=== PATIENT | female | born 1955 | race Caucasian/White ===

== ENCOUNTER 2021-09-19 04:10 | Day surgery (SDC) | payer OTHER ==
[2021-09-18 09:52] VITALS: BMI 36.9
[2021-09-19] MEDS ORDERED: MIDAZOLAM HCL 2 MG/2 ML SINGLE DOSE VIAL ONE (13:08)
[2021-09-19] MEDS ORDERED: LIDOCAINE HCL/PF 2% SDV 5ML VIAL ONE ×2 (13:09→16:16)
[2021-09-19] MEDS ORDERED: DEXAMETHASONE SOD PHOSPHATE 4 MG/1 ML VIAL ONE ×2 (13:09→16:16)
[2021-09-19] MEDS ORDERED: ceFAZolin SODIUM 1 GM VIAL ONE ×2 (13:09→16:16)
[2021-09-19] MEDS ORDERED: PROPOFOL 20 ML ONE ×4 (13:09→14:25)
[2021-09-19] MEDS ORDERED: ONDANSETRON 4 MG/2 ML VIAL IVPUSH PRN (13:11)
[2021-09-19] MEDS ORDERED: oxyCODONE HCL 5 MG TABLET PO PRN (13:11)
[2021-09-19] MEDS ORDERED: LIDOCAINE HCL 1%, 10 MG/ML (20ML VIAL) ONE ×2 (13:13→14:22)
[2021-09-19] MEDS ORDERED: LACTATED RINGERS SOLUTION 1,000 ML IV SCH (13:15)
[2021-09-19] MEDS ORDERED: DEXMEDETOMIDINE HCL 200 MCG/2 ML IVPB ONE (14:05)
[2021-09-19] MEDS ORDERED: ACETAMINOPHEN INJECTION 100 ML IVPB ONE (14:05)
[2021-09-19] MEDS ORDERED: DESFLURANE GAS 240 ML BOTTLE IH ONE (14:26)
[2021-09-19] MEDS ORDERED: SUCCINYLCHOLINE CHLORIDE 200 MG/10 ML SYRINGE ONE (14:29)
[2021-09-19] MEDS ORDERED: ceFAZolin SODIUM 1 GM VIAL IVPB ONE (15:00)
[2021-09-19] MEDS ORDERED: LIDOCAINE HCL 1%, 10 MG/ML (20ML VIAL) NR ONE (15:18)
[2021-09-19 18:00] VITALS: PULSE 65
[2021-09-19 19:07] VITALS: BP 90/54; TEMP 96.8
== END 2021-09-19 19:20 | disposition home or self-care (01) ==
LOC: JASU-SURG 04:10
PROVIDERS: ATTEND Surgery
PROC: 0HBU0ZZ Excision of Left Breast, Open Approach (ICD-10-PCS; principal; 2021-09-19 11:00)
DX: D05.12 Intraductal carcinoma in situ of left breast (principal)
CPT/HCPCS: 88307-TC; 94760